=== PATIENT | male | born 1990 | race Caucasian/White ===

== ENCOUNTER 2016-09-26 13:52 | Emergency (ER) | payer SELFPAY ==
[~2016-09-26] VITALS: Ht 188 cm; Wt 129.7 kg
[2016-09-26] MEDS ORDERED: NADO40TA PO (14:15)
[2016-09-26] MEDS ORDERED: KETOROLAC 30 MG/ML VIAL IVP STA (14:16)
[2016-09-26 14:22] LABS: BASOPHILS % (AUTO) 0 % (0-10); EOSINOPHILS # (AUTO) 0.3 10^3/uL (0.0-0.3); EOSINOPHILS % (AUTO) 3 % (0-10); LYMPHOCYTES # (AUTO) 2.7 X 10^3 (1.0-4.0); LYMPHOCYTES % (AUTO) 26 % (12-44); MEAN CORPUSCULAR HEMOGLOBIN 29 PG (25-34); MEAN CORPUSCULAR HGB CONC 34 G/DL (32-36); MEAN CORPUSCULAR VOLUME 87 FL (80-99); MONOCYTES # (AUTO) 0.9 X 10^3 (0.0-1.0); MONOCYTES % (AUTO) 9 % (0-12); NEUTROPHILS # (AUTO) 6.6 X 10^3 (1.8-7.8); NEUTROPHILS % (AUTO) 63 % (42-75); PLATELET COUNT 286 10^3/uL (130-400); RED BLOOD COUNT 4.76 10^6/uL (4.35-5.85); RED CELL DISTRIBUTION WIDTH 12.6 % (10.0-14.5); WHITE BLOOD COUNT 10.4 10^3/uL (4.3-11.0)
[2016-09-26 14:27] LABS: INR 0.9 (0.8-1.4); PROTHROMBIN TIME PATIENT 12.2 SEC (12.2-14.7)
[2016-09-26 14:28] LABS: BILIRUBIN,URINE NEGATIVE (NEGATIVE); KETONES,URINE NEGATIVE (NEGATIVE); LEUKOCYTE ESTERASE ,URINE NEGATIVE (NEGATIVE); NITRITE,URINE NEGATIVE (NEGATIVE); PH,URINE 7 (5-9); PROTEIN,URINE NEGATIVE (NEGATIVE); UROBILINOGEN,URINE NORMAL (NORMAL)
[2016-09-26] MEDS ORDERED: ASPIRIN 81 MG CHEW (CHILDREN'S ASA) PO ONE (14:30)
[2016-09-26 14:36] LABS: ALANINE AMINOTRANSFERASE 46 U/L (0-55); ALBUMIN 4.4 GM/DL (3.2-4.5); ALCOHOL < 10 MG/DL (<10); AMYLASE 44 U/L (25-125); ANION GAP 8 MMOL/L (5-14); ASPARTATE AMINO TRANSFERASE 20 U/L (5-34); BILIRUBIN,TOTAL 0.5 MG/DL (0.1-1.0); BLOOD UREA NITROGEN 11 MG/DL (7-18); BUN/CREATININE RATIO 13; CALCIUM 9.6 MG/DL (8.5-10.1); CARBON DIOXIDE 28 MMOL/L (21-32); CHLORIDE 104 MMOL/L (98-107); CREATINE KINASE 57 U/L (30-200); CREATININE SERUM 0.84 MG/DL (0.60-1.30); GFR ESTIMATED > 60; GLUCOSE 117 MG/DL (70-105); LIPASE 28 U/L (8-78); MAGNESIUM 1.9 MG/DL (1.8-2.4); POTASSIUM 3.8 MMOL/L (3.6-5.0); SODIUM 140 MMOL/L (135-145); TOTAL PROTEIN 7.6 GM/DL (6.4-8.2)
[2016-09-26 14:36] LABS: SQUAMOUS EPITHELIAL CELL,UR RARE /HPF; WBC,URINE RARE /HPF
--- NOTE | 2016-09-26 14:41 | Diagnostic Imaging Report ---
INDICATION: Chest pain which radiates into the left shoulder. COMPARISON: No previous study is available for comparison at this time. FINDINGS: Heart size and pulmonary vasculature are within normal limits, and the lungs are clear, bilaterally. IMPRESSION: Unremarkable chest. Dictated by: Dictated on workstation # [id number]
--- NOTE | 2016-09-26 14:42 | ED Chest Pain ---
General Chief Complaint: Chest Pain Stated Complaint: CHEST PAIN Nursing Triage Note: PT REPORTS CP AND L SIDED ARM PAIN/NUMBNESS STARTING THIS AM. PT REPROTS WAS SEEN AT [facility] AND HAD LAB WORK AND EKG DONE AND WAS SENT HOME. PT HERE FOR SECOND OPINION BECAUSE CP CONTINUES. Nursing Sepsis Screen: No Definite Risk Source: patient (PT IS VAGUE, DIFFICULT HISTORIAN,AND CHANGES STORY/GIVES CONFLICTING-INCONSISTENT HISTORY) History of Present Illness Time seen by provider: 13:55 Initial Comments PT ARRIVES VIA POV C/O INTERMITTENT, SUDDEN, SHARP PAINS IN CENTER OF CHEST AND RADIATE DOWN LEFT ARM--BEGAN YESTERDAY PAINS WILL LAST UP TO A COUPLE OF HOURS AND GO AWAY ON THEIR OWN NOTHING WORSENS OR IMPROVES PAIN + SHORTNESS OF BREATH NO SWEATS NO SWELLING IN LEGS/FEET OR PAIN IN CALVES + DIZZINESS PT HAS HAD THIS SAME PROBLEM IN THE PAST, AND THIS IS NOT ANY DIFFERENT THAN WHAT HE HAS HAD BEFORE. 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 PT HAS BEEN PRESCRIBED NADALOL --HAS NOT SEEN A CAR INSPECTION AND REPAIR MANAGER IN AT LEAST 4 YEARS , AND WHEN REFILLS ON RX RAN OUT, HE NEVER SOUGHT CARE WITH ANYONE TO GET IT REFILLED, UNTIL HE WENT TO [facility] ER A MONTH OR TWO AGO, AND THEY GAVE HIM A NEW RX PT CLAIMS HE HAS NOT SEEN ANY OTHER DR'S OR BEEN TO THE ER AT ANY OTHER TIME. PT WAS SEEING DR. SMITH IN [facility], AND LAST SAW HER 3 WEEKS AGO FOR ROUTINE EXAM, BUT HE STATES SHE HAS SINCE LEFT THE PRACTICE AND PT PLANS ON ESTABLISHING WITH DR. GRECO IN [facility] WAS SEEN AT [facility] THIS MORNING FOR THIS PROBLEM AND PT REPORTS THAT HE WAS TOLD THAT "THEY SEEN AN ODD PATTERN IN MY HEART RATE" , PT LEFT THERE AND CAME HERE "FOR A SECOND OPINION" Allergies and Home Medications Allergies Coded Allergies: morphine (Verified Allergy, Unknown, HIVES, 09/26/16) Home Medications Nadolol 40 Mg Tablet, 40 MG PO DAILY, (Reported) Review of Systems Constitutional: no symptoms reported EENTM: No Symptoms Reported Respiratory: See HPI, Shortness of Air, SOA With Exertion, SOA at Rest Cardiovascular: See HPI, Chest Pain, Denies Edema, Irregular Heart Rate, Denies Lightheadedness, Palpitations, Denies Syncope Gastrointestinal: No Symptoms Reported, Denies Abdominal Pain, Denies Nausea, Denies Vomiting Genitourinary: No Symptoms Reported Musculoskeletal: see HPI (LEFT ARM PAIN ) Skin: no symptoms reported Psychiatric/Neurological: No Symptoms Reported Endocrine: No Symptoms Reported Hematologic/Lymphatic: No Symptoms Reported Past Garzqfx-Ezboow-Zzbqri Hx Patient Social History Alcohol Use: Denies Use Recreational Drug Use: No Smoking Status: Former Smoker (QUIT 2011, PER PT ON 09/26/16) Type Used: Cigarettes Recent Foreign Travel: No Contact w/Someone Who Travel: No Recent Infectious Disease Expo: No Recent Hopitalizations: No Seasonal Allergies Seasonal Allergies: No Surgeries HX Surgeries: Yes Surgeries: Appendectomy, Gallbladder Respiratory Hx Respiratory Disorders: No Cardiovascular Hx Cardiac Disorders: Yes (WPW) Cardiac Disorders: Irregular Heartbeat Neurological Hx Neurological Disorders: No Genitourinary Hx Genitourinary Disorders: No Gastrointestinal Hx Gastrointestinal Disorders: No Musculoskeletal Hx Musculoskeletal Disorders: No Endocrine Hx Endocrine Disorders: No (OBESITY) HEENT HX ENT Disorders: No Cancer Hx Cancer: No Psychosocial Hx Psychiatric Problems: No Integumentary HX Skin/Integumentary Disorder: No Blood Transfusions Hx Blood Disorders: No Physical Exam Vital Signs Vital Sign - Last 12Hours 09/26/16 14:05 Temp 98.1 Pulse 83 Resp 18 B/P (MAP) 142/98 Pulse Ox 98 O2 Delivery Room Air Capillary Refill : Less Than 3 Seconds General Appearance: No Apparent Distress, WD/WN, Obese, Other (DIRTY, MALODOROUS) Neck: Full Range of Motion, Normal Inspection, Non Tender, Supple, No Carotid Bruit, No JVD Respiratory: Normal Breath Sounds, No Accessory Muscle Use, No Respiratory Distress Cardiovascular: Regular Rate, Rhythm, No Edema, No JVD, No Murmur, Normal Peripheral Pulses Gastrointestinal: Normal Bowel Sounds, No Organomegaly, No Pulsatile Mass, Non Tender, Soft Extremity: Normal Capillary Refill, Normal Inspection, Normal Range of Motion, Non Tender, No Calf Tenderness, No Pedal Edema Neurologic/Psychiatric: Alert, Oriented x3, No Motor/Sensory Deficits, Normal Mood/Affect, histology technologist II-XII Norm as Tested Skin: Normal Color, Warm/Dry Progress/Results/Core Measures Results/Orders Lab Results Laboratory Tests Test 09/26/16 14:01 09/26/16 14:21 09/26/16 16:51 Range/Units White Blood Count 10.4 4.3-11.0 10^3/uL Red Blood Count 4.76 4.35-5.85 10^6/uL Hemoglobin 14.0 13.3-17.7 G/DL Hematocrit 42 40-54 % Mean Corpuscular Volume 87 80-99 FL Mean Corpuscular Hemoglobin 29 25-34 PG Mean Corpuscular Hemoglobin Concent 34 32-36 G/DL Red Cell Distribution Width 12.6 10.0-14.5 % Platelet Count 286 130-400 10^3/uL Mean Platelet Volume 11.0 H 7.4-10.4 FL Neutrophils (%) (Auto) 63 42-75 % Lymphocytes (%) (Auto) 26 12-44 % Monocytes (%) (Auto) 9 0-12 % Eosinophils (%) (Auto) 3 0-10 % Basophils (%) (Auto) 0 0-10 % Neutrophils # (Auto) 6.6 1.8-7.8 X 10^3 Lymphocytes # (Auto) 2.7 1.0-4.0 X 10^3 Monocytes # (Auto) 0.9 0.0-1.0 X 10^3 Eosinophils # (Auto) 0.3 0.0-0.3 10^3/uL Basophils # (Auto) 0.0 0.0-0.1 10^3/uL Prothrombin Time 12.2 12.2-14.7 SEC INR Comment 0.9 0.8-1.4 Activated Partial Thromboplast Time 28 24-35 SEC Sodium Level 140 135-145 MMOL/L Potassium Level 3.8 3.6-5.0 MMOL/L Chloride Level 104 98-107 MMOL/L Carbon Dioxide Level 28 21-32 MMOL/L Anion Gap 8 5-14 MMOL/L Blood Urea Nitrogen 11 7-18 MG/DL Creatinine 0.84 0.60-1.30 MG/DL Estimat Glomerular Filtration Rate > 60 BUN/Creatinine Ratio 13 Glucose Level 117 H 70-105 MG/DL Calcium Level 9.6 8.5-10.1 MG/DL Magnesium Level 1.9 1.8-2.4 MG/DL Total Bilirubin 0.5 0.1-1.0 MG/DL Aspartate Amino Transf (AST/SGOT) 20 5-34 U/L Alanine Aminotransferase (ALT/SGPT) 46 0-55 U/L Alkaline Phosphatase 104 40-136 U/L Total Creatine Kinase 57 30-200 U/L Creatine Kinase MB 0.5 <6.6 NG/ML Troponin I < 0.30 < 0.30 <0.30 NG/ML B-Type Natriuretic Peptide 23.0 <100.0 PG/ML Total Protein 7.6 6.4-8.2 GM/DL Albumin 4.4 3.2-4.5 GM/DL Amylase Level 44 25-125 U/L Lipase 28 8-78 U/L TSH [place] Testing 2.18 0.35-4.94 UIU/ML Serum Alcohol < 10 <10 MG/DL Urine Color YELLOW Urine Clarity SLIGHTLY CLOUDY Urine pH 7 5-9 Urine Specific [place] 1.010 L 1.016-1.022 Urine Protein NEGATIVE NEGATIVE Urine Glucose (UA) NEGATIVE NEGATIVE Urine Ketones NEGATIVE NEGATIVE Urine Nitrite NEGATIVE NEGATIVE Urine Bilirubin NEGATIVE NEGATIVE Urine Urobilinogen NORMAL NORMAL MG/DL Urine Leukocyte Esterase NEGATIVE NEGATIVE Urine RBC (Auto) NEGATIVE NEGATIVE Urine RBC NONE /HPF Urine WBC RARE /HPF Urine Squamous Epithelial Cells RARE /HPF Urine Crystals NONE /LPF Urine Bacteria NEGATIVE /HPF Urine Casts NONE /LPF Urine Mucus NEGATIVE /LPF Urine Culture Indicated NO Urine Opiates Screen NEGATIVE NEGATIVE Urine Oxycodone Screen NEGATIVE NEGATIVE Urine Methadone Screen NEGATIVE NEGATIVE Urine Propoxyphene Screen NEGATIVE NEGATIVE Urine Barbiturates Screen NEGATIVE NEGATIVE Ur Tricyclic Antidepressants Screen NEGATIVE NEGATIVE Urine Phencyclidine Screen NEGATIVE NEGATIVE Urine Amphetamines Screen NEGATIVE NEGATIVE Urine Methamphetamines Screen NEGATIVE NEGATIVE Urine Benzodiazepines Screen NEGATIVE NEGATIVE Urine Cocaine Screen NEGATIVE NEGATIVE Urine Cannabinoids Screen NEGATIVE NEGATIVE My Orders Orders - SARAH CORDOVA DO Amylase (09/26/16 14:16) Cbc With Automated Diff (09/26/16 14:16) Comprehensive Metabolic Panel (09/26/16 14:16) Creatine Kinase (09/26/16 14:16) Creatine Kinase Mb (09/26/16 14:16) Lipase (09/26/16 14:16) Partial Thromboplastin Time (09/26/16 14:16) Protime With Inr (09/26/16 14:16) Troponin I (09/26/16 14:16) Chest 1 View, Ap/Pa Only (09/26/16 14:16) O2 (09/26/16 14:16) Ekg Tracing (09/26/16 14:16) Aspirin Chewable Tablet (Baby Aspirin Ch (09/26/16 14:30) BNP (09/26/16 14:16) Monitor-Rhythm Ecg Trace Only (09/26/16 14:16) Alcohol (09/26/16 14:16) Drug Screen Stat (Urine) (09/26/16 14:16) Magnesium (09/26/16 14:16) Thyroid Analyzer (09/26/16 14:16) Ua Culture If Indicated (09/26/16 14:16) Ketorolac Injection (Toradol Injection) (09/26/16 14:16) Ct Angio Chest W (09/26/16 14:44) Iohexol Injection (Omnipaque 350 Mg/Ml 1 (09/26/16 15:30) Sodium Chloride Flush (Catheter Flush Sy (09/26/16 15:30) Ns (Ivpb) (Sodium Chloride 0.9% Ivpb Bag (09/26/16 15:30) Rx-Nitroglycerin Sl Tabs (Rx-Nitrostat S (09/26/16 16:19) Nitroglycerin Sublingual (Nitrostat Sub (09/26/16 16:30) Troponin I (09/26/16 16:48) Medications Given in ED Current Medications Medications Dose Ordered Sig/Kg Route Start Time Stop Time Status Last Admin Dose Admin Aspirin 324 mg ONCE ONCE PO 09/26/16 14:30 09/26/16 14:31 DC 09/26/16 15:15 324 MG Iohexol 125 ml ONCE ONCE IV 09/26/16 15:30 09/26/16 15:31 DC 09/26/16 15:25 125 ML Nitroglycerin 0.4 mg STK-MED ONCE SL 09/26/16 16:19 09/26/16 16:25 DC 09/26/16 16:27 0.4 MG Sodium Chloride 100 ml ONCE ONCE IV 09/26/16 15:30 09/26/16 15:31 DC 09/26/16 15:25 80 ML Vital Signs/I&O Vital Sign - Last 12Hours 09/26/16 09/26/16 09/26/16 14:05 14:05 17:54 Temp 98.1 98.6 Pulse 83 78 Resp 18 12 B/P (MAP) 142/98 Pulse Ox 98 94 O2 Delivery Room Air Room Air Blood Pressure Mean: 113 Progress Note : Progress Note PT CLAIMS NO RELIEF WITH TORADOL OR NTG, YET HAS RESTED QUIETLY AND DOES NOT APPEAR TO BE IN ANY DISCOMFORT WHATSOEVER. ECG Initial ECG Impression Time: 13:59 Initial ECG Rate: 86 Initial ECG Rhythm: Normal Sinus (LBBB) Initial ECG Comparisson: No Previous ECG Available Diagnostic Imaging Comments CXR--NO ACUTE PROCESS, PER RADIOLOGIST REPORT CT CHEST ANGIOGRAM--NO ACUTE PROCESS, PER RADIOLOGIST REPORT @ 1615 Reviewed: Reviewed by Me Departure Communication Progress Notes 1618/1622--ATTEMPTING TO CONTACT [facility]--MESSAGE LEFT ON MACHINE CONTACTED [facility] ER TO REQUEST COPY OF ANY EKG'S, INCLUDING THE ONE DONE THERE THIS AM. THEY REPORT THAT PT IS VERY WELL KNOWN TO THEM FOR CHRONIC PAIN COMPLAINTS, AND HAS BEEN TO THEIR ER 9 TIMES SINCE AUGUST 08 FOR EITHER CHRONIC ABDOMINAL PAIN OR CHEST PAIN, PT WAS SUPPOSED TO HAVE SEEN THE GI/GENERAL SURGEON DR. ZHOU TODAY AT 1445--OBVIOUSLY PT CAME HERE INSTEAD OF KEEPING THAT APPOINTMENT. REPORTEDLY , ALL WORK UP'S FOR THESE COMPLAINTS HAVE BEEN NEGATIVE THEY ALSO REPORT THAT PT HAS RECENTLY BEEN SEEN BY CAR INSPECTION AND REPAIR MANAGER, DR. OLIVA AT [place] AND HAS HAD A NEGATIVE STRESS TEST AT THAT TIME. RECORDS REQUEST SENT RECEIVED RECORDS FROM [facility]--EKG'S DONE THERE FAR BACK 2013, ALL SHOW NSR WITH WIDENED QRS COMPLEXES, SIMILAR TO EKG DONE HERE. IS NOTED ON ER RECORD FROM [facility] THIS MORNING THAT PT JUST HAD A HOLTER MONITOR PLACED AT [place] 3 DAYS AGO, AND IS A 30 DAY MONITOR. PT DOES NOT HAVE THIS ON WHEN HE ARRIVED HERE, AND DID NOT MENTION THIS TO ME OR ANYONE HERE, AND DENIES THIS DURING ER STAY. PT HAD ARRIVED AT [facility] ER BY EMS THIS AM, AND THEY HAD GIVEN HIM 100 MCG FENTANYL, 324 MG ASPIRIN, AND NTG X1, THEN WAS GIVEN AN ADDITIONAL 50 MCG FENTANYL IN THE ER THERE. AGAIN, PT DID NOT MENTION ANY OF THIS TO ME AND DENIES THIS DURING ER STAY. IS ALSO NOTED THAT HE HAS BEEN PRESCRIBED OXYCODONE WELL MULTIPLE GI MEDICATIONS WELL DOXYCYCLINE AND FLAGYL BY DR. ZHOU--PT DID NOT MENTION AND DENIES THIS DURING ER STAY ALSO NOTED FROM [facility]. [facility] RECORD, IS THAT BOTH DR. ZHOU AND [facility] WERE CONSULTED THIS AM WELL. 1634--SPOKE WITH DR. BOBBY, ADVISES TO REPEAT TROPONIN AT 3 HOUR PAXTON, AND IF NEGATIVE, MAY SEND PT HOME, AND HE WILL FOLLOW UP WITH PT IN OFFICE TOMORROW OR FRIDAY. Impression Impression: Primary Impression: Chest pain Additional Impressions: REPORTED HISTORY OF WPW LBBB (left bundle branch block) Disposition: HOME, SELF-CARE Condition: Stable Departure-Patient Inst. Referrals: Fer BOBBY MD Patient Instructions: Chest Pain (DC), Heart Healthy Diet Add. Discharge Instructions: TAKE YOUR MEDICATION PRESCRIBED FOLLOW UP WITH DR. BOBBY TOMORROW OR FRIDAY FOR FURTHER CARE RETURN TO ER IF SYMPTOMS WORSEN All discharge instructions reviewed with patient and/or family. Voiced understanding. SARAH CORDOVA DO Sep 26, 2016 14:41
[2016-09-26 14:56] LABS: TROPONIN I < 0.30 NG/ML (<0.30)
[2016-09-26] MEDS ORDERED: NS 100 ML (IVPB) BAG IV ONE (15:30)
[2016-09-26] MEDS ORDERED: CATHETER FLUSH 10 ML SYR IV PRN (15:30)
[2016-09-26] MEDS ORDERED: IOHEXOL 350 MG/ML 150 ML (OMNIPAQUE 350) VIAL IV ONE (15:30)
--- NOTE | 2016-09-26 16:11 | Diagnostic Imaging Report ---
PROCEDURE: CT angiography of the chest with contrast. TECHNIQUE: Multiple contiguous axial images were obtained through the chest after uneventful bolus administration of intravenous contrast. Reconstructed CTA MIP acquisitions were also performed. INDICATION: Left arm numbness. FINDINGS: Good opacification of the aorta and pulmonary arteries. No evidence of aortic aneurysm. There are no filling defects to indicate pulmonary emboli. No mediastinal or hilar adenopathy of pathologic size. The lungs are well-aerated and clear. No pleural effusions or pericardial effusion. IMPRESSION: Normal CT angiography of the chest. Dictated by: Dictated on workstation # [id number]
[2016-09-26] MEDS ORDERED: RX-NITROGLYCERIN 0.4 MG TAB BTL 25'S SL ONE (16:19)
[2016-09-26] MEDS ORDERED: NITROGLYCERIN SUBLINGUAL 0.4 MG TAB (NITROSTAT) SL PRN (16:30)
[2016-09-26 17:54] VITALS: BP 130/90
== END 2016-09-26 17:54 | disposition home or self-care (01) ==
LOC: ER 13:54
DX: I44.7 Left bundle-branch block, unspecified (principal); I45.6 Pre-excitation syndrome; E66.9 Obesity, unspecified; Z90.49 Acquired absence of other specified parts of digestive tract; Z90.89 Acquired absence of other organs; Z87.891 Personal history of nicotine dependence; Z68.36 Body mass index [BMI] 36.0-36.9, adult
CPT/HCPCS: 36415; 71010; 71275; 80053; 80306; 80320; 81000; 82150; 82550; 82553; 83690; 83735; 83880; 84443; 84484; 85025; 85610; 85730; 93005; 93041; 96374

== ENCOUNTER 2018-05-31 16:17 | Emergency (ER) | payer SELFPAY ==
[~2018-05-31] VITALS: Ht 190.5 cm; Wt 99.8 kg
[~2018-05-31 16:17] MED LIST: NADO40TA PO
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
[2018-05-31] MEDS ORDERED: HOLD METFORMIN - RECEIVED CONTRAST 20 ML VIAL IV SCH (17:15)
[2018-05-31] MEDS ORDERED: IOHEXOL 350 MG/ML 100 ML (OMNIPAQUE 350) VIAL IV ONE (17:15)
[2018-05-31] MEDS ORDERED: NS 50 ML (IVPB) BAG IV ONE (17:15)
[2018-05-31] MEDS ORDERED: CATHETER FLUSH 10 ML SYR IV PRN (17:15)
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
[2018-05-31 17:37] LABS: WHITE BLOOD COUNT 11.7 10^3/uL (4.3-11.0)
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
[2018-05-31 17:38] LABS: HEMATOCRIT 45 % (40-54); MEAN CORPUSCULAR HEMOGLOBIN 29 PG (25-34); MEAN CORPUSCULAR HGB CONC 33 G/DL (32-36); MEAN CORPUSCULAR VOLUME 87 FL (80-99); NEUTROPHILS % (AUTO) 59 % (42-75); PLATELET COUNT 346 10^3/uL (130-400)
[2018-05-31 17:39] LABS: BASOPHILS % (AUTO) 0 % (0-10); EOSINOPHILS # (AUTO) 0.3 10^3/uL (0.0-0.3); EOSINOPHILS % (AUTO) 3 % (0-10); LYMPHOCYTES # (AUTO) 3.3 X 10^3 (1.0-4.0); LYMPHOCYTES % (AUTO) 29 % (12-44); MONOCYTES % (AUTO) 9 % (0-12); NEUTROPHILS # (AUTO) 6.9 X 10^3 (1.8-7.8)
[2018-05-31 18:01] LABS: CARBON DIOXIDE 27 MMOL/L (21-32); CHLORIDE 102 MMOL/L (98-107); POTASSIUM 3.9 MMOL/L (3.6-5.0); SODIUM 140 MMOL/L (135-145)
[2018-05-31 18:02] LABS: ALANINE AMINOTRANSFERASE 48 U/L (0-55); ALKALINE PHOSPHATASE 115 U/L (40-136); BILIRUBIN,TOTAL 0.5 MG/DL (0.1-1.0); BUN/CREATININE RATIO 17; CALCIUM 9.6 MG/DL (8.5-10.1); CREATININE SERUM 0.75 MG/DL (0.60-1.30); GFR ESTIMATED > 60; GLUCOSE 88 MG/DL (70-105)
[2018-05-31 18:03] LABS: ALBUMIN 4.9 GM/DL (3.2-4.5); TOTAL PROTEIN 8.3 GM/DL (6.4-8.2)
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
[2018-05-31 18:39] VITALS: BP 152/85
== END 2018-05-31 18:36 | disposition home or self-care (01) ==
LOC: EDUNIT# 16:17 → ER FS 16:19
DX: S40.021A Contusion of right upper arm, initial encounter (principal); S60.222A Contusion of left hand, initial encounter; S20.219A Contusion of unspecified front wall of thorax, initial encounter; Z88.5 Allergy status to narcotic agent; Z87.891 Personal history of nicotine dependence; Z90.49 Acquired absence of other specified parts of digestive tract; Z98.890 Other specified postprocedural states; V48.6XXA Car passenger injured in noncollision transport accident in traffic accident, initial encounter
CPT/HCPCS: 36415; 73060; 73090; 73130; 74177; 80053; 85025

== ENCOUNTER 2020-11-16 19:13 | Emergency (ER) | payer SELFPAY ==
[~2020-11-16] VITALS: Ht 187 cm; Wt 125.0 kg
[~2020-11-16 19:13] MED LIST changes: -NADO40TA PO; +NADO40TA2 PO
[2020-11-16] MEDS ORDERED: ONDANSETRON 4 MG/2 ML (SDV) Z0FRAN IVP ONE (19:30)
[2020-11-16] MEDS ORDERED: fentaNYL INJ 100 MCG/2 ML AMP IVP ONE (19:30)
[2020-11-16] MEDS ORDERED: IOHEXOL 350 MG/ML 100 ML (OMNIPAQUE 350) VIAL IV ONE (19:45)
[2020-11-16] MEDS ORDERED: NS 100 ML (IVPB) BAG IV ONE (19:45)
[2020-11-16] MEDS ORDERED: HOLD METFORMIN - RECEIVED CONTRAST 20 ML VIAL IV SCH (19:45)
--- NOTE | 2020-11-16 20:05 | ED General ---
General Stated Complaint: BLOODY VOMITTING AND DIARRHEA,ABD PAIN Source of Information: Patient Exam Limitations: No Limitations History of Present Illness Date Seen by Provider: Nov 16, 2020 Time Seen by Provider: 19:15 Initial Comments Patient is a 30-year-old male who presents with intermittent daily nausea for the past 3 days with emesis this morning, and crampy lower abdominal pain with watery rust colored diarrhea yesterday and today. Patient reports body aches malaise chills and sweats, but denies fever. Denies dizziness lightheadedness palpitations chest pain and shortness of breath. No recent travel antibiotics [facility] or known GI illness exposure. No history of inflammatory bowel disease. Previous cholecystectomy and appendectomy. Timing/Duration: 1-3 Hours Severity: Moderate Modifying Factors: improves with Other Associated Systoms: Other Allergies and Home Medications Allergies Coded Allergies: morphine (Verified Allergy, Unknown, HIVES, 09/26/16) Patient Home Medication List Home Medication List Reviewed: Yes Nadolol (Nadolol) 40 Mg Tablet, 40 MG PO DAILY, (Reported) Entered as Reported by: EUGENIE ROCHE on 09/26/16 1415 Review of Systems Review of Systems Constitutional: see HPI EENTM: see HPI Respiratory: see HPI Cardiovascular: see HPI Gastrointestinal: see HPI Genitourinary: see HPI Musculoskeletal: see HPI Skin: see HPI Psychiatric/Neurological: See HPI Hematologic/Lymphatic: See HPI Immunological/Allergic: see HPI All Other Systems Reviewed Negative Unless Noted: Yes Past Noqwacp-Evmrdx-Jrggll Hx Patient Social History Tobacco Use?: Yes Seasonal Allergies Seasonal Allergies: No Past Medical History Surgeries: Yes Appendectomy, Gallbladder Respiratory: No Cardiac: Yes (WPW, ) Irregular Heartbeat Neurological: No Genitourinary: No Gastrointestinal: No Musculoskeletal: No Endocrine: No HEENT: No Cancer: No Psychosocial: No Integumentary: No Blood Disorders: No Physical Exam Vital Signs Vital Signs - First Documented 11/16/20 19:20 Temp 37.1 Pulse 105 Resp 16 B/P (MAP) 114/81 (92) Pulse Ox 99 O2 Delivery Room Air Capillary Refill : Height, Weight, BMI Height: 6'3.00" Weight: 220lbs. oz. 99.356564cp; BMI Method:Stated General Appearance: No Apparent Distress, Anxious Eyes: Bilateral Eye Normal Inspection HEENT: PERRL/EOMI, Normal ENT Inspection, Pharynx Normal, Moist Mucous Membranes Neck: Full Range of Motion, Non Tender, Supple Respiratory: Lungs Clear Gastrointestinal: Soft, Other (Diffuse lower abdominal pain) Back: Normal Inspection, No CVA Tenderness Neurologic/Psychiatric: Alert, Oriented x3 Focused Exam Sepsis Stage: Ruled Out Progress/Results/Core Measures Suspected Sepsis SIRS Temperature: Pulse: Respiratory Rate: Laboratory Tests 11/16/20 19:35: White Blood Count 12.6H Blood Pressure / Mean: Laboratory Tests 11/16/20 19:35: Creatinine 1.01, Platelet Count 376, Total Bilirubin 0.4 Results/Orders Lab Results Laboratory Tests Test 11/16/20 19:35 Range/Units White Blood Count 12.6 H 4.3-11.0 10^3/uL Red Blood Count 4.94 4.30-5.52 10^6/uL Hemoglobin 14.7 13.3-17.7 g/dL Hematocrit 43 40-54 % Mean Corpuscular Volume 87 80-99 fL Mean Corpuscular Hemoglobin 30 25-34 pg Mean Corpuscular Hemoglobin Concent 34 32-36 g/dL Red Cell Distribution Width 12.5 10.0-14.5 % Platelet Count 376 130-400 10^3/uL Mean Platelet Volume 11.2 9.0-12.2 fL Immature Granulocyte % (Auto) 0 % Neutrophils (%) (Auto) 58 42-75 % Lymphocytes (%) (Auto) 31 12-44 % Monocytes (%) (Auto) 8 0-12 % Eosinophils (%) (Auto) 2 0-10 % Basophils (%) (Auto) 0 0-10 % Neutrophils # (Auto) 7.3 1.8-7.8 X 10^3 Lymphocytes # (Auto) 3.9 1.0-4.0 X 10^3 Monocytes # (Auto) 1.1 H 0.0-1.0 X 10^3 Eosinophils # (Auto) 0.2 0.0-0.3 10^3/uL Basophils # (Auto) 0.0 0.0-0.1 10^3/uL Immature Granulocyte # (Auto) 0.1 0.0-0.1 10^3/uL Sodium Level 141 135-145 MMOL/L Potassium Level 3.5 L 3.6-5.0 MMOL/L Chloride Level 102 98-107 MMOL/L Carbon Dioxide Level 26 21-32 MMOL/L Anion Gap 13 5-14 MMOL/L Blood Urea Nitrogen 12 7-18 MG/DL Creatinine 1.01 0.60-1.30 MG/DL Estimat Glomerular Filtration Rate 87 BUN/Creatinine Ratio 12 Glucose Level 92 70-105 MG/DL Calcium Level 9.6 8.5-10.1 MG/DL Corrected Calcium 8.5-10.1 MG/DL Total Bilirubin 0.4 0.1-1.0 MG/DL Aspartate Amino Transf (AST/SGOT) 53 H 5-34 U/L Alanine Aminotransferase (ALT/SGPT) 77 H 0-55 U/L Alkaline Phosphatase 116 40-136 U/L Total Protein 8.4 H 6.4-8.2 GM/DL Albumin 5.0 H 3.2-4.5 GM/DL My Orders Orders - JACQUES COOK DO Cbc With Automated Diff (11/16/20 19:25) Comprehensive Metabolic Panel (11/16/20 19:25) Ondansetron Injection (Zofran Injectio (11/16/20 19:30) Fentanyl Inj (Sublimaze Injection) (11/16/20 19:30) Ct Abdomen/Pelvis W (11/16/20 19:28) Iohexol Injection (Omnipaque 350 Mg/Ml 1 (11/16/20 19:45) Received Contrast (Hold Metformin- Contr (11/16/20 19:45) Ns (Ivpb) (Sodium Chloride 0.9% Ivpb Bag (11/16/20 19:45) Ekg Tracing (11/16/20 19:41) Medications Given in ED Current Medications Medications Dose Ordered Sig/Kg Route Start Time Stop Time Status Last Admin Dose Admin Fentanyl Citrate 50 mcg ONCE ONCE IVP 11/16/20 19:30 11/16/20 19:31 DC 11/16/20 19:46 50 MCG Iohexol 100 ml ONCE ONCE IV 11/16/20 19:45 11/16/20 19:52 DC 11/16/20 20:13 100 ML Ondansetron HCl 4 mg ONCE ONCE IVP 11/16/20 19:30 11/16/20 19:31 DC 11/16/20 19:45 4 MG Sodium Chloride 100 ml ONCE ONCE IV 11/16/20 19:45 11/16/20 19:52 DC 11/16/20 20:13 80 ML Vital Signs/I&O 11/16/20 19:20 Temp 37.1 Pulse 105 Resp 16 B/P (MAP) 114/81 (92) Pulse Ox 99 O2 Delivery Room Air Capillary Refill : Departure Communication (Admissions) CT abdomen pelvis: No acute disease. Labs and imaging reviewed. CT abdomen and pelvis reassuring. Patient's abdomen soft, nonsurgical. Recommendations supportive care watchful waiting and PCP follow-up as needed. Courtesy work note provided. Return precautions reviewed. Patient verbalizes understanding agreement discharge instructions prior to departure. Impression Primary Impression: Abdominal pain Additional Impression: Vomiting and diarrhea Disposition: HOME, SELF-CARE Condition: Stable Departure-Patient Inst. Decision time for Depature: 20:56 Referrals: NO,LOCAL PHYSICIAN (PCP/Family) Primary Care Physician Patient Instructions: Nausea and Vomiting, Adult, Abdominal Pain, Adult ED, Diarrhea, Adult ED, Diarrhea in Adolescents and Adults Add. Discharge Instructions: You were evaluated in the emergency department for abdominal pain vomiting and d iarrhea. Lab and imaging studies were performed and are nondiagnostic. The exact cause of your symptoms has not been determined. Please take newly prescribed medications as directed and Pepto-Bismol as needed for additional relief. Increase fluids and stay home from work the next 2 days. Follow-up with local PCP in 3 to 4 days if symptoms persist. Return to the ED if new or w orsening symptoms. Scripts Dicyclomine HCl (Dicyclomine HCl) 20 Mg Tablet 20 MG PO QID, #12 TAB Prov: JACQUES COOK DO 11/16/20 Ondansetron (Ondansetron Odt) 4 Mg Tab.rapdis 4 MG PO DAILY, #10 TAB Prov: JACQUES COOK DO 11/16/20 Work/School Note: Work Release Form Date Seen in the Emergency Department: Nov 16, 2020 Return to Work: Nov 20, 2020 JACQUES COOK DO Nov 16, 2020 20:05
[2020-11-16 20:07] LABS: HEMATOCRIT 43 % (40-54); HEMOGLOBIN 14.7 g/dL (13.3-17.7); MEAN CORPUSCULAR HEMOGLOBIN 30 pg (25-34); MEAN CORPUSCULAR HGB CONC 34 g/dL (32-36); MEAN CORPUSCULAR VOLUME 87 fL (80-99); WHITE BLOOD COUNT 12.6 10^3/uL (4.3-11.0)
[2020-11-16 20:08] LABS: BASOPHILS % (AUTO) 0 % (0-10); EOSINOPHILS # (AUTO) 0.2 10^3/uL (0.0-0.3); EOSINOPHILS % (AUTO) 2 % (0-10); LYMPHOCYTES # (AUTO) 3.9 X 10^3 (1.0-4.0); LYMPHOCYTES % (AUTO) 31 % (12-44); MEAN PLATELET VOLUME 11.2 fL (9.0-12.2); MONOCYTES # (AUTO) 1.1 X 10^3 (0.0-1.0); MONOCYTES % (AUTO) 8 % (0-12); NEUTROPHILS # (AUTO) 7.3 X 10^3 (1.8-7.8); NEUTROPHILS % (AUTO) 58 % (42-75); PLATELET COUNT 376 10^3/uL (130-400)
--- NOTE | 2020-11-16 20:20 | Diagnostic Imaging Report ---
CT ABDOMEN/PELVIS W TECHNIQUE: Multiple contiguous axial images were obtained through the abdomen and pelvis after administration of intravenous contrast. All CT scans use one or more of the following dose optimizing techniques: automated exposure control, MA and/or KvP adjustment based on patient size and exam type or iterative reconstruction. INDICATION: Blood in stools. Vomiting COMPARISON: None available. FINDINGS: Lower chest: The lung bases are clear. No pericardial or pleural effusion. Peritoneum: No free intraperitoneal air or fluid. Liver and biliary system: The liver is normal. Cholecystectomy. No biliary duct dilatation. Spleen and Pancreas: Spleen is normal. The pancreas enhances normally without mass lesion or peripancreatic inflammatory changes. Adrenals: Normal. tract: The kidneys enhance normally without suspicious mass or obstruction. Urinary bladder is decompressed and not well evaluated. No renal or ureteral stones. Prostate is not enlarged. GI tract: Stomach is partially filled with fluid and air and there is no acute abnormality detected. No bowel obstruction. No pericolonic inflammatory changes. Appendectomy. Vasculature and Lymph nodes: Normal caliber aorta. No abdominal or pelvic lymphadenopathy. Musculoskeletal: No concerning osseous lesion. IMPRESSION: 1. No acute intra-abdominal process. 2. Cholecystectomy and appendectomy. Dictated by: Dictated on workstation # [id number]
[2020-11-16 20:32] LABS: ALANINE AMINOTRANSFERASE 77 U/L (0-55); ALKALINE PHOSPHATASE 116 U/L (40-136); BILIRUBIN,TOTAL 0.4 MG/DL (0.1-1.0); BUN/CREATININE RATIO 12; CALCIUM 9.6 MG/DL (8.5-10.1); CARBON DIOXIDE 26 MMOL/L (21-32); CHLORIDE 102 MMOL/L (98-107); CREATININE SERUM 1.01 MG/DL (0.60-1.30); GFR ESTIMATED 87; GLUCOSE 92 MG/DL (70-105); POTASSIUM 3.5 MMOL/L (3.6-5.0); SODIUM 141 MMOL/L (135-145); TOTAL PROTEIN 8.4 GM/DL (6.4-8.2)
[2020-11-16] MEDS ORDERED: ONDA4TAB11 PO (20:57)
[2020-11-16] MEDS ORDERED: DICY20TA10 PO (20:59)
[2020-11-16 21:11] VITALS: BP 125/64
== END 2020-11-16 21:11 | disposition home or self-care (01) ==
LOC: EDUNIT# 19:13 → ER FS 19:15
DX: R10.30 Lower abdominal pain, unspecified (principal); R11.2 Nausea with vomiting, unspecified; R19.7 Diarrhea, unspecified; Z90.49 Acquired absence of other specified parts of digestive tract; Z90.89 Acquired absence of other organs
CPT/HCPCS: 36415; 74177; 80053; 85025

== ENCOUNTER 2021-10-24 22:10 | Emergency (ER) | payer SELFPAY ==
[~2021-10-24] VITALS: Ht 187 cm; Wt 132.7 kg
[~2021-10-24 22:10] MED LIST changes: +DICY20TA PO; +ONDA4TAB11 PO
--- NOTE | 2021-10-24 22:15 | ED EENT ---
History of Present Illness General Chief Complaint: Oral/Throat Problems Stated Complaint: THROAT SWELLING History of Present Illness Date Seen by Provider: Oct 24, 2021 Time Seen by Provider: 22:15 Initial Comments 31-year-old male presents with an enlarged tonsils, sore throat, weight discharge on his tonsils and swollen lymph nodes. He reports symptoms started t his morning. He denies any fever, chills, nausea, vomiting, difficulty swallowing. Allergies and Home Medications Allergies Coded Allergies: morphine (Verified Allergy, Unknown, HIVES, 09/26/16) Patient Home Medication List Home Medication List Reviewed: Yes Dicyclomine HCl (Dicyclomine HCl) 20 Mg Tablet, 20 MG PO QID Prescribed by: JACQUES COOK on 11/16/202058 Nadolol (Nadolol) 40 Mg Tablet, 40 MG PO DAILY, (Reported) Entered as Reported by: EUGENIE ROCHE on 09/26/16 141 Ondansetron (Ondansetron Odt) 4 Mg Tab.rapdis, 4 MG PO DAILY Prescribed by: JACQUES COOK on 11/16/202056 Review of Systems Review of Systems Constitutional: No chills, No fever Eyes: No Symptoms Reported Ears: No Symptoms Reported Nose: no symptoms reported Mouth: see HPI Throat: see HPI Respiratory: no symptoms reported Cardiovascular: no symptoms reported Musculoskeletal: no symptoms reported Skin: no symptoms reported Neurological: No Symptoms Reported Past Uddkucs-Pvijoh-Glcoly Hx Immunizations Up To Date First/Initial COVID19 Vaccinat: NA Seasonal Allergies Seasonal Allergies: No Past Medical History Surgeries: Yes Appendectomy, Gallbladder Respiratory: No Cardiac: Yes (WPW, ) Irregular Heartbeat Neurological: No Genitourinary: No Gastrointestinal: No Musculoskeletal: No Endocrine: No HEENT: No Cancer: No Psychosocial: No Integumentary: No Blood Disorders: No Physical Exam Height, Weight, BMI Height: 6'3.00" Weight: 220lbs. oz. 99.234567bt; 35.00 BMI Method:Stated General Appearance: WD/WN, no apparent distress Nose: normal inspection Mouth/Throat: tonsillar exudate, tonsillar swelling (3+ bilateral) Neck: lymphadenopathy (R), lymphadenopathy (L) Cardiovascular: normal peripheral pulses, regular rate, rhythm Respiratory: lungs clear, normal breath sounds Neurologic/Psychiatric: alert, normal mood/affect, oriented x 3 Skin: normal color, warm/dry Progress/Results/Core Measures Progress Progress Note : Progress Note Patient's symptoms consistent with strep pharyngitis. Patient is treated with Bicillin and Decadron. Patient stable and discharged home. Departure Impression Primary Impression: Pharyngitis Qualified Codes: J02.9 - Acute pharyngitis, unspecified Disposition: HOME, SELF-CARE Condition: Stable Departure-Patient Inst. Referrals: NO,LOCAL PHYSICIAN (PCP/Family) Primary Care Physician Patient Instructions: Strep Throat (DC) Add. Discharge Instructions: Salt water gargle 4-5 times daily Oikz-fto-ywvuyia throat spray or lozenges as needed for pain Drink plenty of fluids All discharge instructions reviewed with patient and/or family. Voiced understanding. PATRICK MIRZA DO Oct 24, 2021 22:15
[2021-10-24] MEDS ORDERED: PEN G BENZ (BICILLIN LA) 1.2 M UN/2 ML SYR IM STA (22:18)
[2021-10-24 22:43] VITALS: BP 129/109
== END 2021-10-24 22:43 | disposition home or self-care (01) ==
LOC: EDUNIT# 22:10 → ER FS 22:11
DX: J02.9 Acute pharyngitis, unspecified (principal); Z28.310 Unvaccinated for COVID-19
CPT/HCPCS: 99284